=== PATIENT | male | born 1990 | race American Indian/Alaskan Native ===

== ENCOUNTER 2020-12-25 11:30 | Emergency (ER) | payer SELFPAY ==
[2020-12-25 11:59] VITALS: BP 97/62
[2020-12-25] MEDS ORDERED: IPRATROPIUM 0.02% NEBU 2.5 ML IH ONE (12:04)
[2020-12-25] MEDS ORDERED: methylPREDNISolone Sod Succinate 125 MG/2 ML INJ IV ONE (12:04)
[2020-12-25] MEDS ORDERED: SODIUM CHLORIDE 0.9% 1000 ML 1,000 ML IV ONE (12:04)
[2020-12-25] MEDS ORDERED: MAGNESIUM SULFATE 2 GM/50 ML BAG IV ONE (12:04)
[2020-12-25] MEDS ORDERED: ALBUTEROL 2.5 MG/3 ML NEBU IH ONE (12:04)
--- NOTE | 2020-12-25 12:10 | Emergency Department Report ---
ED General Adult HPI - General Chief complaint: Dyspnea/Respdistress Stated complaint: ASTHMA Time Seen by Provider: 12/25/20 12:03 Source: patient Mode of arrival: Ambulatory Limitations: No Limitations - History of Present Illness Initial comments: 30-year-old male patient with history of asthma presents to the emergency department with complaints of chest tightness, shortness of breath, and wheezing starting 2 days ago. Patient is out of his rescue inhaler. He has required hospitalization for asthma on multiple prior occasions. States he was intubated last year. Symptoms are consistent with prior asthma flareups. Denies fever, chills, hemoptysis, vomiting, syncope, lower extremity pain/swelling. Denies all other complaints at this time. - Related Data Previous Rx's Medication Instructions Recorded Last Taken Type Albuterol Sulfate [Proair 90 mcg IH PRN PRN #1 aer.pow.ba 12/25/20 Unknown Rx Respiclick] predniSONE [Deltasone] 20 mg PO QDAY #5 tab 12/25/20 Unknown Rx Allergies Allergy/AdvReac Type Severity Reaction Status Date / Time No Known Allergies Allergy Unverified 12/25/20 11:57 ED Review of Systems ROS: Stated complaint: ASTHMA Other details as noted in HPI Other: GENERAL: Negative for fever, chills, weight change, anorexia, fatigue. ENT: Negative for ear pain, difficulty hearing, sore throat, nasal congestion, epistaxis. CARDIOVASCULAR: Positive for chest tightness. PULMONARY: Positive for cough, wheezing, shortness of breath. GASTROINTESTINAL: Negative for abdominal pain, nausea, vomiting, diarrhea, constipation. MUSCULOSKELETAL: Negative for joint pain, joint swelling, myalgias, back pain, neck pain. NEUROLOGICAL: Negative for headache, seizure, syncope, paresthesias, weakness. INTEGUMENTARY: Negative for erythema, rash, diaphoresis, laceration, ecchymosis. HEMATOLOGICAL: Negative for hemoptysis, hematemesis, hematochezia, hematuria. PSYCHIATRIC: Negative for hallucinations, suicidal ideation, homicidal ideation, anxiety, depression. ED Past Medical Hx - Past Medical History Previous Medical History?: Yes Hx Asthma: Yes - Surgical History Past Surgical History?: No - Medications Home Medications: Home Medications Medication Instructions Recorded Confirmed Last Taken Type Albuterol Sulfate [Proair 90 mcg IH PRN PRN #1 aer.pow.ba 12/25/20 Unknown Rx Respiclick] predniSONE [Deltasone] 20 mg PO QDAY #5 tab 12/25/20 Unknown Rx ED Physical Exam - General Limitations: No Limitations - Other Other exam information: General: Awake and alert. No acute distress. Head: Atraumatic, normocephalic. Eyes: EOMI. Pupils are equal and round. Normal sclera and conjunctiva. ENT: Oral mucosa is moist. Normal pharyngeal exam. Neck: Supple. No lymphadenopathy. Pulmonary: Diffuse inspiratory and expiratory wheezing bilaterally with diminished air movement throughout. Cardiac: Regular rate and rhythm. Pulses are palpable and equal bilaterally. No lower extremity cyanosis or edema. Skin: Warm and dry. No rashes. Abdomen: Soft, non-tender, non-protuberant. No guarding, rigidity, or rebound. Bowel sounds are normal. No organomegaly or masses noted. Back: Normal alignment. No CVA tenderness. Extremities: Symmetrical. Full range of motion intact. Neurological: Alert and oriented, appropriately interactive, no focal deficits. Psych: Cooperative. Appropriate mood and affect. Speech is evenly metered. Thoughts are logically construed. ED Course Vital Signs 12/25/20 11:58 Temperature 98.3 F Pulse Rate 81 Respiratory 20 Rate Blood Pressure 97/62 O2 Sat by Pulse 96 Oximetry ED Medical Decision Making - Medical Decision Making Differential diagnosis including but not limited to: pneumonia, asthma exacerbation, pleural effusion, viral upper respiratory infection, pulmonary embolism Patient presents to the emergency department with signs and/or symptoms that arise low risk clinical suspicion for pulmonary embolism. The patient has none of the following clinical criteria: age >50, heart rate >100, room air O2 saturation <94%, history of DVT/PE, recent trauma/surgery, hemoptysis, exogenous hormone use, or signs/symptoms of DVT. As a result, this patient has very low probability of pulmonary embolism and further testing is not indicated. 12:04: Patient presents to the emergency department with signs/symptoms consistent with prior asthma exacerbations. Diffuse wheezing on initial presentation. Ordered pvc monitor, continuous pulse oximetry, peripheral IV access, breathing treatment, IV steroids, IV magnesium, IV fluids. 14:00: On reevaluation, patient is stable and symptoms have improved. States he is feeling much better and is asking when he may be discharged from the hospital so he can return to work. Repeat cardiopulmonary exam demonstrates good air movement with minimal wheezing. Chest x-ray is negative. Repeat vitals without evidence of hypoxia or tachycardia. No clinical indication for further diagnostic work-up or continued ED treatment at this time. Patient ambulatory in the emergency department without oxygen desaturation or respiratory distress. Patient will be discharged home with beta agonist inhaler, short course of steroids, and referral to primary care provider for close to patient follow-up. Patient expressed understanding and is agreeable to plan of care. Lifestyle modifications discussed. Strict return precautions provided. Repeat exam is unremarkable and benign. History, exam, diagnostic testing, and current condition do not suggest worrisome pathology to warrant further testing, continued ED treatment, admission, or surgical evaluation at this point. Given the low probability of a significant medical illness, it would be more likely to result in harm than benefit to perform further testing at this stage. Discussed findings, presumptive diagnosis, need for follow-up and specific signs/symptoms that should prompt immediate return to the emergency department. Instructions were explained in detail to the patient in addition to giving written discharge information. Patient expressed understanding and was given the opportunity to ask questions, all of which were satisfactorily answered prior to discharge home. Critical care attestation.: If time is entered above; I have spent that time in minutes in the direct care of this critically ill patient, excluding procedure time. ED Disposition Clinical Impression: Asthma exacerbation Qualifiers: Asthma severity: unspecified severity Asthma persistence: unspecified Qualified Code(s): J45.901 - Unspecified asthma with (acute) exacerbation Disposition: 01 HOME / SELF CARE / HOMELESS Is pt being admited?: No Does the pt Need Aspirin: No Condition: Stable Instructions: Asthma, Adult, [place] Additional Instructions: Use Albuterol as directed. Take Prednisone with food as directed. Avoid environmental triggers which may worsen your asthma. Follow-up with primary care provider this week. Call today to schedule appointment. See referral information below. Return to the emergency department immediately for new or worsening symptoms. Prescriptions: predniSONE [Deltasone] 20 mg PO QDAY #5 tab Albuterol Sulfate [Proair Respiclick] 90 mcg IH PRN PRN #1 aer.pow.ba PRN Reason: Shortness Of Breath Referrals: VALERIE BENAVIDES MD [Staff Physician] - 3-5 Days [facility] [Provider Group] - 3-5 Days Forms: Work/School Release Form(ED) Time of Disposition: 14:08
--- NOTE | 2020-12-25 13:53 | XRay Report ---
CHEST 2 VIEWS INDICATION: asthma, no COVID vaccine. COMPARISON: None FINDINGS: SUPPORT DEVICES: None. HEART: Within normal limits. LUNGS/PLEURA: No acute air space or interstitial disease. No pneumothorax. ADDITIONAL FINDINGS: None. IMPRESSION: 1. No acute findings. Signer Name: Sukhwinder Jiménez MD Signed: 12/25/2020 1:48 PM Workstation Name: [id number]
== END 2020-12-25 15:00 | disposition home or self-care (01) ==
LOC: ED 11:30
DX: J45.901 Unspecified asthma with (acute) exacerbation (principal); Z79.899 Other long term (current) drug therapy
CPT/HCPCS: 71046; 94640; 96365; 96375; 99283; J2930; J3475; J7030